=== PATIENT | female | born 1990 | race Caucasian/White ===

== ENCOUNTER → 2022-03-19 07:48 | Outpatient (CLI) | payer BC, SELFPAY ==
--- NOTE | ~2022-03-19 | US_ITS ---
US abdomen complete EXAMINATION: US Abdomen Complete INDICATION: Abdominal distention. Right lower quadrant pain. PROCEDURE: Realtime High Resolution abdomen ultrasound. COMPARISON: No prior studies for comparison FINDINGS: There is a gallbladder polyp measuring 5 mm. No definite gallstones, gallbladder wall thick ening or pericholecystic fluid. Common bile duct measures 3 mm. Liver echotexture is increased, consistent with fatty infiltration.. Pancreas within normal limits. Pancreatic tail is obscured by bowel gas. Spleen is unremarkeable. Renal echotexture is within norm al limits bilaterally without hydronephrosis, contour deforming mass or renal stone. Right kidney tree sures 12.1 cm. Left kidney measures 12.1 cm. Visualized aspects of the aorta and IVC are within normal limits. Portal vein is patent. No sonograph ic Quintanilla's sign indicated by the technologist. IMPRESSION: 1: Gallbladder polyp measuring 5 mm. 2: Hepatic steatosis. Reviewed, dictated and finalized at location A.
--- NOTE | ~2022-03-19 | US_ITS ---
EXAMINATION: US transvaginal DATE: 03/19/2022 08:46 INDICATION: Right upper quadrant pain Comparison:No prior studies for comparison. TECHNIQUE: Multiple transabdominal and endovaginal sonographic images of the pelvis performed. FINDINGS: The uterus measures 6.9 x 3.3 x 4.1 cm. There is a hypoechoic mass anteriorly in the uterus measuring 1.7 x 1.4 x 1.4 cm, compatible with a fibroid. The endometrial complex measures 6 mm. The right ovary measures 2.7 x 1.5 x 1.9 cm and the left ovary measures 2.3 x 2 x 3.3 cm. There are small follicles in each ovary. Normal doppler signal in both ovaries. There is no free fluid in the pelvis. There are no abnormal masses seen on either side. IMPRESSION: 1. Small uterine fibroid anteriorly measuring 1.7 cm. Reviewed, dictated and finalized at location A.
== END ==
PROVIDERS: PCP Family Medicine; Visit Provider Nurse Practitioner Family
DX: R10.31 Right lower quadrant pain (principal); R14.0 Abdominal distension (gaseous); N92.0 Excessive and frequent menstruation with regular cycle; K82.4 Cholesterolosis of gallbladder; K76.0 Fatty (change of) liver, not elsewhere classified; D25.9 Leiomyoma of uterus, unspecified
CPT/HCPCS: 76700; 76830

== ENCOUNTER 2022-07-29 17:44 | Emergency (ER) | payer BC, SELFPAY ==
--- NOTE | ~2022-07-29 | US_ITS ---
EXAMINATION: US OB <=14 wk fetus w TV DATE: 07/30/2022 00:55 INDICATION: Lower abdominal pain during first trimester TECHNIQUE: Real-time pelvic ultrasound utilizing both a transvaginal and transabdominal probe was pe rformed. The interpreting radiologist was not present for the study. COMPARISON: None. FINDINGS: The uterus measures 9.5 x 7.2 x 5.6 cm. There appears be a single intrauterine gestational sac with 2 yolk sacs and poles consistent with a monochorionic twin . Thin echogenic line is se en centrally within the amniotic fluid suggestive but not definitive for a amniotic membra ne and would favor diamniotic over monoamniotic . Cervical length measures 4.6 cm with a cou ple small anechoic nabothian cysts. The crown rump length for twin A measures 1.6 cm, which correlates with an estimated gestational age of 8 weeks and 0 days. heart motion is identified measuring 161 beats per minute (bpm) by M-mod e Doppler. The crown rump length for twin B measures 1.7 cm, which correlates with an estimated gestational age of 8 weeks and 1 days. heart motion is identified measuring 161 beats per minute (bpm) by M-mod e Doppler. The right ovary measures 2.7 x 1.7 x 1.7 cm. The left ovary measures 2.7 x 1.8 x 2.7 cm. There is no free fluid in the pelvis. IMPRESSION: 1. Monochorionic with 2 living fetuses. Favor diamniotic over monoamniotic. 2. Gestational age by ultrasound of 8 weeks 1 day(s) +/- 5 day(s) with ultrasound estimated date of delivery (MARKO) of 03/10/2023. Reviewed, dictated and finalized at location B. WAREHOUSING SPECIALIST IMPRESSION: 1. Monochorionic with 2 living fetuses. Favor diamniotic over monoamn iotic. 2. Gestational age by ultrasound of 8 weeks 1 day(s) +/- 5 day(s) with ultraso und estimated date of delivery (MARKO) of 03/10/2023.
[2022-07-29 18:19] VITALS: BP 133/79; PULSE 66; RESP 18; TEMP 36.3; O2SAT 100
[2022-07-29 18:41] LABS: Basophils Absolute Auto 0.1 K/mm3 (0.0-0.1); Basophils Percent Auto 0.6 % (0.2-1.2); Eosinophils Absolute Auto 0.2 K/mm3 (0-0.3); Eosinophils Percent Auto 2.4 % (0-4.4); Hematocrit 38.2 % (37.0-47.0); Hemoglobin 13.3 g/dL (12.0-15.0); Immature Granulocyte Absolute 0.03 K/mm3 (0.00-0.031); Immature Granulocyte Percent A 0.3 % (0-0.5); Lymphocytes Absolute Auto 1.97 K/mm3 (0.9-3.2); Lymphocytes Percent Auto 20.3 % (18.3-44.2); Mean Corpuscular HGB Conc 34.8 g/dl (32-36); Mean Corpuscular Hemoglobin 31.1 pg (26-34); Mean Corpuscular Volume 89.3 fl (80-100); Mean Platelet Volume 9.5 fl (7.4-10.4); Monocytes Absolute Auto 0.5 K/mm3 (0.1-0.6); Neutrophils Absolute Auto 6.9 K/mm3 (1.3-6.7); Neutrophils Percent Auto 71.4 % (45.5-73.1); Platelet Count Result 302 k/mm3 (150-375); Red Blood Count 4.28 M/mm3 (4.2-5.4); Red Cell Distribution Width 11.6 % (11.5-14.5); White Blood Count 9.7 K/mm3 (4.5-10.0)
[2022-07-29 18:50] LABS: Alanine Aminotransferase 19 U/L (6-35); Albumin Level 4.4 g/dL (3.5-5.1); Alkaline Phosphatase 68 U/L (38-126); Anion Gap 11 mmol/L (8-16); Aspartate Amino Transferase 21 U/L (14-36); Bilirubin,Total 0.6 mg/dL (0.2-1.3); Blood Urea Nitrogen 8 mg/dL (7-17); Calcium 8.9 mg/dL (8.4-10.2); Carbon Dioxide 22 mmol/L (22-30); Chloride 104 mmol/L (98-107); Estimated CRCL calculation 138 ml/min; Estimated Glomerular Filt Rate > 60; Glucose 95 mg/dL (65-110); Lipase 65 U/L (23-300); Potassium 3.7 mmol/L (3.4-5.0); Sodium 137 mmol/L (137-145)
[2022-07-29 23:03] LABS: Add Urine Microscopic? YES; Appearance Urine Clear (Clear); Bilirubin Urine 1+ (Negative); Blood Urine Negative (Negative); Color Urine Yellow (Yellow); Glucose Urine UA Negative (Negative); Ketones Urine 2+ mg/dL (Negative); Leukocyte Esterase Ur Negative LEU/UL (Negative); Nitrate Urine Negative (Negative); Protein Urine 1+ mg/dL (Negative); Specific Grav Ur >= 1.030 (1.001-1.035); Urobilinogen Urine 0.2 mg/dL (<2.0); pH Urine 5.5 (5.0-9.0)
[2022-07-29 23:06] LABS: Bacteria Urine Trace /hpf; Calcium Oxalate Crystals Urine Present /hpf; Mucus Urine Heavy /lpf; Squamous Epithelial Cell Urine Occasional /hpf (Few)
--- NOTE | 2022-07-29 23:25 | ED.NAVMDI ---
HPI - Nausea/Vomiting/Diarrhea General Chief complaint: Nausea/Vomiting/Diarrhea Stated complaint: vomiting, 8 weeks Time Seen by Provider: 07/29/22 22:49 Source: patient Mode of arrival: ambulatory Limitations: no limitations History of Present Illness HPI Narrative: Patient is a 32-year-old female who presents to the ED with report of N/V. Patient is G1, P0 and currently 8 weeks gestation. She has her first appointment with Dr. Hwang on Saturday. She reports she has had intermittent nausea and vomiting since about week 5, but symptoms became worse over the last 2 days. She had several episodes of emesis yesterday and is now unable to keep anything down today. No previous ultrasound for current . She is not on any antiemetics. She denies any fever, cough or cold symptoms, diarrhea, constipation, dysuria, hematuria, abdominal pain, vaginal bleeding, vaginal discharge. She notes she did have 1 episode of pain in her lower abdomen last night however. Related Data Home Medications Medication Instructions Recorded Confirmed Lactobacillus rhamnosus GG 5 PO 05/18/22 05/22/22 billion cell oral powder packet ([employer] Probiotics) prenat.vits,nabeel,poi-vlcg-eynyx 1 tablet PO DAILY 05/18/22 05/22/22 Allergies Allergy/AdvReac Type Severity Reaction Status Date / Time No Known Allergies Allergy Mild Verified 05/18/22 10:57 Review of Systems Review of Systems: CONSTITUTIONAL: Denies fever, chills, or sweats. ENT: Denies rhinorrhea, congestion, sore throat. CARDIOVASCULAR: Denies chest pain. RESPIRATORY: Denies cough or dyspnea. GASTROINTESTINAL: Reports nausea, vomiting. Denies abdominal pain, constipation, or diarrhea. GENITOURINARY: Denies vaginal bleeding, vaginal discharge, dysuria, or hematuria. All systems reviewed & are unremarkable except as noted in HPI and below PMFSH Past Medical History Medical History Acute bacterial sinusitis Acute bronchitis due to other specified organisms BMI 36.0-36.9,adult BMI over 35 Body mass index [BMI] 31.0-31.9, adult (02/16/16) Body mass index [BMI] 33.0-33.9, adult (02/21/17) Body mass index [BMI] 36.0-36.9, adult (11/20/18) Change in mole Cough Dietary counseling and surveillance (08/21/18) GUTIERREZ (dyspnea on exertion) Ear infection Encounter for gynecological examination (general) (routine) without abnormal findings Hair loss History of HPV infection Hx of mitral valve prolapse 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 HEAD: Normocephalic, atraumatic. NECK: Supple. No adenopathy, no masses. RESPIRATORY: Airway patent, respirations nonlabored. Clear to auscultation bilaterally, no rales, rhonchi, wheezing. CARDIOVASCULAR: Regular rate and rhythm without murmurs, rubs, or gallops. Peripheral pulses 2+ and equal bilaterally. ABDOMINAL: Soft, mild tenderness in lower ABD/suprapubic region, nondistended, no hepatosplenomegaly. Normoactive BS. MUSCULO
[2022-07-29] MEDS: SODIUM CHLORIDE 0.9% IV 1,000 ML 999 ML IV CONT (23:43)
[2022-07-29] MEDS: ONDANSETRON INJ 4 MG/2 ML VIAL IV PUSH (23:43)
[2022-07-29 23:49] VITALS: PULSE 90; O2SAT 100
[2022-07-30] VITALS (21 sets, daily range): BP systolic 112–118; BP diastolic 59–68; PULSE 58–90; RESP 18–20; O2SAT 99–100
[2022-07-30] MEDS: SODIUM CHLORIDE 0.9% IV 1,000 ML 999 ML IV CONT (02:24)
[2022-07-30] MEDS: PROMETHAZINE HCL 25 MG/ML AMPUL 12.5 MG IV PUSH (02:46)
== END 2022-07-30 05:23 | disposition home or self-care (01) ==
PROVIDERS: Emergency Medicine; Emergency Provider Physician Assistant; PCP Family Medicine
DX: O30.001 Twin pregnancy, unspecified number of placenta and unspecified number of amniotic sacs, first trimester (principal); O26.891 Other specified pregnancy related conditions, first trimester; R82.71 Bacteriuria; R11.2 Nausea with vomiting, unspecified; Z3A.08 8 weeks gestation of pregnancy
CPT/HCPCS: 36415; 76801; 76817; 80053; 81001; 81025; 83690; 84702; 85025; 96361; 96374; 96375; 99284; J2405; J2550; J7030

== ENCOUNTER 2022-08-01 17:32 | Observation (INO) | payer BC, SELFPAY ==
[2022-08-01] MEDS: DEXTROSE 5%/LACTATED RINGERS 1,000 ML 999 ML IV CONT (18:25)
[2022-08-01] MEDS: METOCLOPRAMIDE HCL INJ 10 MG/2 ML VIAL IV PUSH (18:25)
[2022-08-01 18:28] VITALS: BMI 34.5
--- NOTE | 2022-08-01 18:28 | OBADM ---
This patient, Rose Pretty, admitted to the OB room OB Post 112 for observation. Patient/family oriented to hospital policies and general routines including ID bracelet, bed and alarms, visiting hours, pain management, procedures, bathroom and other care routines, personal items, smoking policy, room service/diet, and visiting hours. Patient/Family are encouraged to report perceived risks to care and to ask questions if they do not understand what they are told or what they should do.
--- NOTE | 2022-08-01 19:34 | PC.NURSE ---
RN, Margarita Malin, contacted Dr. Hwang. Eri updated on completion of D5 LR and administration of reglan. PT states that she is no longer nauseas. PT urinated. Ordered to administer food to PT and report back to Dr. Hwang.
--- NOTE | 2022-08-01 19:59 | PC.NURSE ---
Dr. Hwang contacted RN, Margarita Malin. PT ate and is keeping food down. PT states that she is not nauseas. Ordered to discharge PT at this time.
--- NOTE | 2022-08-01 20:00 | PC.NURSE ---
Discharge orders received. This RN administered discharge instructions to PT. PT verbalized understanding. PT given opportunity to ask questions with all questions answered by RN. PT stable at this time. PT discharge ambulatory not in active labor.
--- NOTE | 2022-08-18 20:18 | PM.OBTRLD ---
OB - Triage/Final Diagnosis Visit Information Comments/Additional reasons for admission: I have assessed the risk for this patient, Rose Pretty, and determined that she would benefit from observation care. Final Diagnosis (1) Nausea and vomiting during : Code(s): O21.9 - Vomiting of , unspecified Status: Acute
== END 2022-08-01 19:58 | disposition home or self-care (01) ==
PROVIDERS: Admitting Provider Obstetrics & Gynecology; PCP Family Medicine; Visit Provider Obstetrics & Gynecology
DX: O21.9 Vomiting of pregnancy, unspecified (principal); Z3A.00 Weeks of gestation of pregnancy not specified
CPT/HCPCS: 96361; 96374; G0378; G0379; J2765; J7121